=== PATIENT | male | born 1965 | race Caucasian/White ===

== ENCOUNTER 2019-06-07 01:12 | Emergency (ER) | payer MEDICAID ==
[~2019-06-07] VITALS: Ht 172.7 cm; Wt 86.0 kg
[2019-06-07] MEDS ORDERED: MAGNESIUM/ALUMINUM HYDROXIDE/SIMETHICONE 30ML UDC PO STA (02:14)
[2019-06-07 02:22] LABS: CHLORIDE 100 mEq/L (98-107)
[2019-06-07 02:28] LABS: BASOPHILS % 0.5 % (0.0-2.0); HEMATOCRIT. 48.8 % (42.0-52.0); HEMOGLOBIN. 16.9 g/dL (14.0-18.0); MEAN CORPUSCULAR HEMOGLOBIN 32.7 pg (28.0-32.0); MEAN CORPUSCULAR VOLUME 94.7 fL (80.0-94.0); MEAN PLATELET VOLUME 8.7 fl (7.4-10.4); MONOCYTES % 10.1 % (2.0-8.0); NEUTROPHILS % 58.4 % (40.0-76.0); PLATELET 228 x1000/uL (130-400); RED BLOOD CELL COUNT 5.16 mill/uL (4.7-6.1); RED CELL DISTRIBUTION WIDTH 13.2 % (11.6-14.6)
[2019-06-07 06:46] VITALS: BP 122/79
== END 2019-06-07 06:52 | disposition home or self-care (01) ==
LOC: ER 01:12
DX: R10.13 Epigastric pain (principal)
CPT/HCPCS: 36415; 71045; 76705; 80053; 83690; 84484; 85025; 99284; Z7610